=== PATIENT | male | born 1940 | race Caucasian/White ===

== ENCOUNTER → 2017-11-16 09:22 | Outpatient (CLI) | payer MEDICARE | END | disposition home or self-care (01) | LOC: D.NM 11-13 10:00 | DX: C64.1 Malignant neoplasm of right kidney, except renal pelvis (principal) ==

== ENCOUNTER 2021-05-24 12:55 | Inpatient (IN) | payer MEDICARE ==
[~2021-05-24] VITALS: Ht 172.7 cm; Wt 68.5 kg
--- NOTE | 2021-05-24 15:24 | NUR ---
CALL TO PHARMACY FOR IVF. SPOKE WITH TONYA,SHE WILL BRING TO UNIT
--- NOTE | 2021-05-24 15:30 | NUR ---
ASSESSMENT PER FLOW SHEET. PATIENT IS WITHOUT DISTRESS.IV SITED TO RIGHT FOREARM X1 STICK USING ASEPTIC TECH,20G. SCD'S PLACED ON PATIENT AND IS INSTRUCTED.
[2021-05-24 15:46] LABS: BASOPHILS 0.8 % (0-2); EOSINOPHILS 2.7 % (0-7); HEMATOCRIT 30.5 % (42.0-54.0); HEMOGLOBIN 9.6 g/dL (13.5-17.5); LYMPHOCYTES 25.8 % (15-50); MCH 27.7 pg (26.0-34.0); MCHC 31.3 g/dL (31.0-37.0); MCV 88.6 fL (80.0-100.0); MEAN PLATELET VOLUME 8.1 fL (7.4-10.4); MONOCYTES 7.9 % (2-11); NEUTROPHILS 62.8 % (40-80); RBC 3.44 10x6/uL (4.20-6.10); RDW 29.1 % (11.5-14.5); WBC 4.1 10x3/uL (4.8-10.8)
[2021-05-24 15:48] LABS: PLATELET COUNT 118 10x3/uL (130-400)
[2021-05-24 16:00] LABS: ALBUMIN 2.4 g/dL (3.4-5.0); ANION GAP 20.2 mmol/L (8-16); BILIRUBIN - TOTAL 0.39 mg/dL (0.2-1.3); CARBON DIOXIDE 14.9 mmol/L (21.0-32.0); CREATININE - SERUM 5.3 mg/dL (0.6-1.3); POTASSIUM - SERUM 5.1 mmol/L (3.5-5.1); PROTEIN - SERUM 6.6 g/dL (6.4-8.2)
[2021-05-24 16:06] LABS: CALCIUM 6.2 mg/dL (8.5-10.1)
[2021-05-24] MEDS ORDERED: FOLIC ACID1 MG PO (16:34)
[2021-05-24] MEDS ORDERED: NORVASC10 MG PO (16:34)
[2021-05-24] MEDS ORDERED: SYNTHROID150 MCG PO (16:35)
[2021-05-24] MEDS ORDERED: SODIUM BICARBO650 MG PO ×2 (16:36)
[2021-05-24] MEDS ORDERED: ZOFRAN4 MG PO (16:37)
[2021-05-24] MEDS ORDERED: PROCRIT 202000 UNIT/ SC (16:38)
[2021-05-24] MEDS ORDERED: LOMOTIL 2.5-0.1 EAC1 PO (16:39)
[2021-05-24] MEDS ORDERED: PRAVASTATIN SOD10 MG PO (16:40)
[2021-05-24] MEDS ORDERED: VITAMIN D325 MC1 PO (16:41)
[2021-05-24 17:42] VITALS: BP 123/70
[2021-05-24 18:03] LABS: BILIRUBIN NEGATIVE (NEGATIVE); KETONE NEGATIVE mg/dL (< 1+); NITRITE NEGATIVE (NEGATIVE); PH 5.5 (5.0-8.0); SQUAMOUS EPITHELIAL <1 HPF (0-4); UROBILINOGEN NORMAL mg/dL (< 2); WHITE CELLS - URINE 2 HPF (0-1)
[2021-05-24 20:00] VITALS: BP 94/62
[2021-05-25] VITALS: BP 138/67
[2021-05-25 04:00] VITALS: BP 129/66
[2021-05-25 06:55] LABS: PHOSPHOROUS 5.4 mg/dL (2.5-4.9); URIC ACID 6.9 mg/dL (2.6-7.2)
[2021-05-25 08:20] LABS: BASOPHILS 0.5 % (0-2); EOSINOPHILS 3.2 % (0-7); HEMATOCRIT 25.8 % (42.0-54.0); HEMOGLOBIN 8.2 g/dL (13.5-17.5); LYMPHOCYTES 25.1 % (15-50); MCH 28.1 pg (26.0-34.0); MCHC 31.9 g/dL (31.0-37.0); MEAN PLATELET VOLUME 8.1 fL (7.4-10.4); MONOCYTES 8.7 % (2-11); NEUTROPHILS 62.5 % (40-80); PLATELET COUNT 95 10x3/uL (130-400); RBC 2.93 10x6/uL (4.20-6.10); RDW 28.7 % (11.5-14.5)
[2021-05-25 08:24] LABS: ANION GAP 23.3 mmol/L (8-16); CARBON DIOXIDE 12.7 mmol/L (21.0-32.0); CREATININE - SERUM 4.9 mg/dL (0.6-1.3)
[2021-05-25 08:51] LABS: CALCIUM 6.1 mg/dL (8.5-10.1)
[2021-05-25 09:43] VITALS: BP 122/71
--- NOTE | 2021-05-25 09:59 | NUR ---
AAOX4 UPON ENTERING. ADMINISTERED MEDICATION, NO DIFFICULTIES. LEFT RESTING COMFORTABLY, DENIES ANY NEEDS AT THIS TIME. BED IN LOWEST POSITION, BED RAILS X2, CALL LIGHT WITHIN REACH. WILL CONTINUE POC. ASSESSMENT PERFORMED
--- NOTE | 2021-05-25 12:17 | NUR ---
I have reviewed this patient and I concur with the Shift Assessment completed by the Licensed Practical Nurse today this shift.
[2021-05-25 12:42] LABS: PLATELET ESTIMATE DECREASED
--- NOTE | 2021-05-25 12:51 | NUR ---
UPRIGHT IN BED, FAMILY AT BEDSIDE. URINE SPECIMEN COLLECTED. DENIES FURTHER NEEDS. WILL CONTINUE POC.
[2021-05-25 14:22] VITALS: BP 122/63
--- NOTE | 2021-05-25 17:37 | NUR ---
UPRIGHT IN BED, EATING DINNER. DENIES NEEDS AT THIS TIME. WILL CONTINUE POC
[2021-05-25 17:47] VITALS: BP 113/57
[2021-05-25 20:00] VITALS: BP 121/64
[2021-05-26] VITALS: BP 115/66
[2021-05-26 04:00] VITALS: BP 108/53
[2021-05-26 08:21] LABS: CREATININE - SERUM 4.2 mg/dL (0.6-1.3); POTASSIUM - SERUM 4.4 mmol/L (3.5-5.1)
[2021-05-26 08:34] LABS: BASOPHILS 0.7 % (0-2); EOSINOPHILS 3.4 % (0-7); HEMATOCRIT 25.8 % (42.0-54.0); HEMOGLOBIN 8.4 g/dL (13.5-17.5); LYMPHOCYTES 29.2 % (15-50); MCHC 32.5 g/dL (31.0-37.0); MCV 86.3 fL (80.0-100.0); MEAN PLATELET VOLUME 8.7 fL (7.4-10.4); MONOCYTES 8.3 % (2-11); NEUTROPHILS 58.4 % (40-80); PLATELET COUNT 107 10x3/uL (130-400); RBC 2.99 10x6/uL (4.20-6.10); RDW 28.8 % (11.5-14.5); WBC 4.3 10x3/uL (4.8-10.8)
[2021-05-26 09:01] VITALS: BP 126/68
[2021-05-26 09:03] LABS: ANION GAP 13.8 mmol/L (8-16); CARBON DIOXIDE 25.6 mmol/L (21.0-32.0)
[2021-05-26 09:04] LABS: CALCIUM 5.8 mg/dL (8.5-10.1)
--- NOTE | 2021-05-26 09:14 | NUR ---
received call from lab patient calcium is 5.8, paged dr oneal, continue with plan of care
--- NOTE | 2021-05-26 09:39 | NUR ---
PATIENT BICARB CHANGED TO 1300MG TID, WENT OVER MEDICATION CHANGES WITH PATIENT, ALL QUESTIONS ANSWERED NO NEEDS VOICED AT THIS TIME, CONTINUE WITH PLAN OF CARE
[2021-05-26 14:01] VITALS: BP 112/60
[2021-05-26 14:50] VITALS: Ht 172.7 cm; Wt 68.5 kg
[2021-05-26 16:42] VITALS: BP 121/65
--- NOTE | 2021-05-26 17:31 | NUR ---
I have reviewed this patient and I concur with the Shift Assessment completed by the Licensed Practical Nurse today this shift.
[2021-05-26 20:00] VITALS: BP 124/67
--- NOTE | 2021-05-26 20:04 | NUR ---
ADMINISTERED SCHEDULE MEDICATIONS, PATIENT SODIUM BICARB WAS DC, SL PATIENT AFTER CALCIUM GLUCONATE ADMINSITERED, PATIENT INQUIRED ON POSSIBLE DC, SPOKE TO DR TAN EARLIER AND WAS TOLD PATIENT SHOULD BE DC IN THE MORNING. NO OTHER ENEDS AT THIS TIME. CONTINUE WITH PLAN OF CARE
[2021-05-27 00:13] VITALS: BP 120/70
[2021-05-27 04:35] VITALS: BP 118/68
--- NOTE | 2021-05-27 05:33 | NUR ---
I have reviewed this patient and I concur with the Shift Assessment completed by the Licensed Practical Nurse today this shift.
[2021-05-27 09:14] VITALS: BP 128/70
[2021-05-27 09:16] LABS: BASOPHILS 0.6 % (0-2); EOSINOPHILS 3.3 % (0-7); HEMATOCRIT 30.3 % (42.0-54.0); HEMOGLOBIN 9.6 g/dL (13.5-17.5); LYMPHOCYTES 20.9 % (15-50); MCH 27.9 pg (26.0-34.0); MCHC 31.8 g/dL (31.0-37.0); MCV 87.7 fL (80.0-100.0); MONOCYTES 7.4 % (2-11); NEUTROPHILS 67.8 % (40-80); PLATELET COUNT 114 10x3/uL (130-400); RBC 3.46 10x6/uL (4.20-6.10); RDW 28.5 % (11.5-14.5); WBC 4.2 10x3/uL (4.8-10.8)
[2021-05-27 09:27] LABS: ALBUMIN 2.2 g/dL (3.4-5.0); ANION GAP 12.4 mmol/L (8-16); BILIRUBIN - TOTAL 0.83 mg/dL (0.2-1.3); CARBON DIOXIDE 29.1 mmol/L (21.0-32.0); CREATININE - SERUM 4.2 mg/dL (0.6-1.3); POTASSIUM - SERUM 4.5 mmol/L (3.5-5.1); PROTEIN - SERUM 6.3 g/dL (6.4-8.2)
[2021-05-27 09:33] LABS: CALCIUM 6.3 mg/dL (8.5-10.1)
--- NOTE | 2021-05-27 09:33 | NUR ---
CRITICAL LAB RECIEVED FROM NEELAM IN LAB, CALCIUM OF 6.3, UP FROM 5.8
[2021-05-27] MEDS ORDERED: TUMS PO (11:57)
[2021-05-27 12:00] VITALS: BP 120/57
[2021-05-27] MEDS ORDERED: SODIUM BICARBO650 MG PO (12:00)
[2021-05-27] MEDS ORDERED: ROCALTROL0.25 MCG PO (12:01)
[2021-05-27] MEDS ORDERED: SENSIPAR30 MG PO (12:01)
[2021-05-27 12:23] LABS: PRO/CRE RATIO URINE 0.4 mg/g; PROTEIN - URINE 55.4 mg/dL (0.0-11.9)
--- NOTE | 2021-05-27 12:29 | MORECARE ---
CASE MANAGEMENT DISCHARGE SUMMARY PATIENT: LARA SENA UNIT: [id number] ADM DATE: 05/24/21 AGE: 80 : 42 SEX: M ROOM/BED: D.2216 AUTHOR: MAN,DOC PHYSICIAN: REFERRING PHYSICIAN: FERMIN TAN MD DATE OF SERVICE: 05/27/21 Case Management Discharge Planning Summary COMMENTS ENTERED DATE: 05/27/21 12:25 CT COMMENT TYPE: Discharge Planning REVIEWER: Stacy Maciel CM met with patient to complete initial dc planning assessment. CM educated patient on the CM role and verbal consent given by patient to complete assessment. Patient lives at home with his where he is independent with his care. At discharge patient plans to return home and feels this is a safe discharge. His will be his rivet driver home. CM discussed availability of home health, rehab services, and medical equipment. Patient denied known discharge needs at this time. IMM served and explained. CM will continue to follow and will assist as needed with dc plans/needs. DCP REVIEW SUMMARY ANTICIPATED D/C DATE: EXPECTED LOS : CASE STATUS: DCP Initiated INITIAL REVIEW: 05/24/2021 INITIAL REVIEWER: Stacy Maciel FINAL DISCHARGE DISPOSITION: 01 : Home or Self Care (Routine Discharge) FINAL REVIEWER: FINAL REVIEW DATE: DCP Focus Questions & Answers QUESTION: ANSWER : PATIENT: LARA SENA ENCOUNTER: [id number] MEDICAL RECORD#: [id number] ADMISSION DATE: 05/24/2021 DISCHARGE DATE: ATTENDING MD: FERMIN DAVIS : AGE: 80 MARITAL STATUS: M DC PLAN ID: [id number] FACILITY: [facility] PRINTED ON: 05/27/21 12:28 CT All edits/amendments must be made on the electronic document DICTATION DATE: 05/27/21 1228 RANGER AIDE: TERE 05/27/21 1228 RPT#: [id number] DC DATE: STATUS: ADM IN [facility] [address] [place] [address] END OF REPORT
--- NOTE | 2021-05-27 12:51 | NUR ---
IV CALCIUM ORDERED TO BE DONE BEFORE DISCHARGE, STILL DID NOT HAVE MED, CALLED PHARMACY, STATED THEY HAD IT READY AND WILL BRING IT UP SOON
--- NOTE | 2021-05-27 14:16 | NUR ---
CRITICAL LAB RECEIVED FROM NEELAM IN LAB, MAG OF 0.9, RESULTS CALLED TO [facility]ACOME, ORDER FOR 800MG MAG PO RECEIVED, TAKE 800MG DAILY AFTER DISCHARGE
--- NOTE | 2021-05-27 14:37 | NUR ---
NEW PRESCRIPTION CALLED TO [facility] ON [address] [place]
[2021-05-27] MEDS ORDERED: MAG-OX 400 MG400 MG PO (15:36)
--- NOTE | 2021-05-29 17:38 | MORECARE ---
CASE MANAGEMENT DISCHARGE SUMMARY PATIENT: LARA SENA UNIT: [id number] ADM DATE: 05/24/21 AGE: 80 : 42 SEX: M ROOM/BED: D.2216 AUTHOR: MAN,DOC PHYSICIAN: REFERRING PHYSICIAN: FERMIN TAN MD DATE OF SERVICE: 05/29/21 Case Management Discharge Planning Summary COMMENTS ENTERED DATE: 05/27/21 12:25 CT COMMENT TYPE: Discharge Planning REVIEWER: Stacy Maciel CM met with patient to complete initial dc planning assessment. CM educated patient on the CM role and verbal consent given by patient to complete assessment. Patient lives at home with his where he is independent with his care. At discharge patient plans to return home and feels this is a safe discharge. His will be his p d driver home. CM discussed availability of home health, rehab services, and medical equipment. Patient denied known discharge needs at this time. IMM served and explained. CM will continue to follow and will assist as needed with dc plans/needs. DCP REVIEW SUMMARY ANTICIPATED D/C DATE: EXPECTED LOS : CASE STATUS: DCP Complete INITIAL REVIEW: 05/24/2021 INITIAL REVIEWER: Stacy Maciel FINAL DISCHARGE DISPOSITION: 01 : Home or Self Care (Routine Discharge) FINAL REVIEWER: FINAL REVIEW DATE: DCP Focus Questions & Answers QUESTION: ANSWER : PATIENT: LARA SENA ENCOUNTER: [id number] MEDICAL RECORD#: [id number] ADMISSION DATE: 05/24/2021 DISCHARGE DATE: 05/27/2021 ATTENDING MD: FERMIN DAVIS : AGE: 80 MARITAL STATUS: M DC PLAN ID: [id number] FACILITY: [facility] PRINTED ON: 05/29/21 17:38 CT All edits/amendments must be made on the electronic document DICTATION DATE: 05/29/211737 WINDOWS SERVER SUPPORT TECHNICIAN: TERE 05/29/211737 RPT#: [id number] DC DATE:05/27/21 STATUS: DIS IN [facility] [address] [place] [address] END OF REPORT
== END 2021-05-27 17:49 | disposition home or self-care (01) | DRG 683 ==
LOC: D.MS 12:55
PROVIDERS: Internal Medicine; Internal Medicine Nephrology; ADMIT Legal Medicine; ATTEND Legal Medicine
DX: N17.9 Acute kidney failure, unspecified (principal); E87.2 Acidosis; C78.89 Secondary malignant neoplasm of other digestive organs; I12.9 Hypertensive chronic kidney disease with stage 1 through stage 4 chronic kidney disease, or unspecified chronic kidney disease; N18.4 Chronic kidney disease, stage 4 (severe); N25.81 Secondary hyperparathyroidism of renal origin; E83.51 Hypocalcemia; D63.1 Anemia in chronic kidney disease; E83.39 Other disorders of phosphorus metabolism; E11.22 Type 2 diabetes mellitus with diabetic chronic kidney disease; Z85.528 Personal history of other malignant neoplasm of kidney